=== PATIENT | male | born 1995 | race African-American/Black ===

== ENCOUNTER 2023-07-03 20:26 | Emergency (ER) | payer MEDICAID ==
[~2023-07-03] VITALS: Ht 177.8 cm; Wt 72.0 kg
[2023-07-03 21:36] VITALS: BP 120/73; PULSE 87; RESP 16; TEMP 98.7; O2SAT 100
[2023-07-03] MEDS ORDERED: ONDANSETRON 4MG ODT PO ONE (22:15)
[2023-07-03 22:33] LABS: DIFFERENTIAL COMMENT 1; HEMATOCRIT. 42.4 % (42.0-52.0); HEMOGLOBIN. 14.5 g/dL (14.0-18.0); MEAN CORPUSCULAR HEMOGLOBIN 29.3 pg (28.0-32.0); MEAN CORPUSCULAR HGB CONC 34.2 g/dL (31.0-37.0); MEAN CORPUSCULAR VOLUME 85.6 fL (80.0-94.0); MEAN PLATELET VOLUME 7.6 fl (7.4-10.4); PLATELET 262 x1000/uL (130-400); RED BLOOD CELL COUNT 4.95 mill/uL (4.7-6.1); WHITE BLOOD COUNT 6.6 x1000/uL (4.5-11.0)
[2023-07-03 22:40] LABS: CHLORIDE 109 mEq/L (98-107); INDEX HEMOLYSI 1 (1-3); INDEX ICTERIC 1 (1-4); INDEX LIPEMIC 1 (1-3); POTASSIUM 3.4 mEq/L (3.5-5.1); SODIUM 139 mEq/L (136-145)
[2023-07-03 22:47] LABS: ALANINE AMINOTRANSFERASE 22 IU/L (13-61); ALBUMIN 4.1 g/dL (3.4-5.0); ASPARTATE AMINOTRANSFERASE 27 IU/L (15-37); CARBON DIOXIDE 27 mEq/L (21-32); CREATININE 1.3 mg/dL (0.6-1.3); GLUCOSE 112 mg/dL (70-105); PROTEIN TOTAL 7.9 g/dL (6.0-8.3); UREA NITROGEN BLOOD 16 mg/dL (7-21)
[2023-07-03 22:54] LABS: PLATELET ESTIMATE NORMAL
[2023-07-04] MEDS ORDERED: ONDA4TAB11 PO (00:46)
== END 2023-07-04 00:59 | disposition home or self-care (01) ==
LOC: ER 20:26
DX: K52.9 Noninfective gastroenteritis and colitis, unspecified (principal); J06.9 Acute upper respiratory infection, unspecified; Z20.822 Contact with and (suspected) exposure to COVID-19
CPT/HCPCS: 99283; 87426; 80053; 83690; 85025; 36415; Q0162; C9803

== ENCOUNTER 2024-09-09 20:00 | Emergency (ER) | payer SELFPAY ==
[~2024-09-09] VITALS: Ht 177.8 cm; Wt 68.0 kg
[~2024-09-09 20:00] MED LIST: OMEP20CA14 MT; ONDA-239 PO; SUCR1TAB30 MT
[2024-09-09 20:33] VITALS: TEMP 98.3; O2SAT 100
[2024-09-09] MEDS: ACETAMINOPHEN 325MG TABLET PO STA (23:49)
[2024-09-10] MEDS ORDERED: D-ME473S50 PO (01:20)
[2024-09-10] MEDS ORDERED: ACET-2708 PO (01:20)
[2024-09-10] MEDS ORDERED: ALBU18HF2 IH (01:20)
[2024-09-10 01:28] VITALS: BP 119/68; PULSE 63; RESP 18; O2SAT 98
== END 2024-09-10 01:30 | disposition home or self-care (01) ==
LOC: ER 20:00
DX: J20.9 Acute bronchitis, unspecified (principal); Z79.899 Other long term (current) drug therapy; Z20.822 Contact with and (suspected) exposure to COVID-19
CPT/HCPCS: 71045; 87070; 87426; 87430; 87804; 99284

== ENCOUNTER 2025-03-25 15:27 | Emergency (ER) | payer MEDICAID ==
[~2025-03-25] VITALS: Ht 177.8 cm; Wt 75.0 kg
[~2025-03-25 15:27] MED LIST changes: +ACET-2708 PO; +ALBU18HF2 IH; +D-ME473S50 PO
[2025-03-25 15:38] VITALS: O2SAT 98
[2025-03-25 16:09] VITALS: BP 110/78; PULSE 74; RESP 17; TEMP 36.9; O2SAT 98
[2025-03-25 17:47] LABS: CARBON DIOXIDE 27 mEq/L (21-32); CHLORIDE 102 mEq/L (98-107); POTASSIUM 3.7 mEq/L (3.5-5.1); SODIUM 138 mEq/L (136-145)
[2025-03-25 17:48] LABS: CALCIUM 9.6 mg/dL (8.7-10.4); HEMATOCRIT 39.9 % (42.0-52.0); HEMOGLOBIN 13.3 g/dL (14.0-18.0); MEAN CORPUSCULAR HEMOGLOBIN 28.4 pg (28.0-32.0); MEAN CORPUSCULAR HGB CONC 33.3 g/dL (31.0-37.0); MEAN CORPUSCULAR VOLUME 85.4 fL (80.0-94.0); PLATELET 215 x1000/uL (130-400); RED BLOOD CELL COUNT 4.67 mill/uL (4.7-6.1); RED CELL DISTRIBUTION WIDTH 13.1 % (11.6-14.6); WHITE BLOOD COUNT 7.8 x1000/uL (4.5-11.0)
[2025-03-25 17:52] LABS: CREATININE 1.3 mg/dL (0.6-1.3); GLUCOSE 88 mg/dL (70-105)
[2025-03-25 17:53] LABS: UREA NITROGEN BLOOD 11 mg/dL (9-23)
[2025-03-25 17:54] LABS: ALANINE AMINOTRANSFERASE 12 IU/L (10-49); ALBUMIN 4.2 g/dL (3.2-4.8); ASPARTATE AMINOTRANSFERASE 20 IU/L (<34)
[2025-03-25 17:55] LABS: BILIRUBIN DIRECT 0.2 mg/dL (<=3.0); BILIRUBIN TOTAL 0.6 mg/dL (0.1-1.0); PROTEIN TOTAL 6.6 g/dL (6.0-8.3)
[2025-03-25 18:32] LABS: CLARITY URINE CLEAR (CLEAR); COLOR URINE YELLOW (YELLOW); GLUCOSE URINE NEGATIVE (NEGATIVE); KETONES URINE TRACE (NEGATIVE); LEUKOCYTE ESTERASE URINE NEGATIVE (NEGATIVE); NITRITE URINE NEGATIVE (NEGATIVE); OCCULT BLOOD URINE NEGATIVE (NEGATIVE); PROTEIN URINE NEGATIVE (NEGATIVE); SPECIFIC GRAVITY URINE 1.018 (1.005-1.030); UROBILINOGEN URINE 0.2 E.U./dL (0.2-1.0)
[2025-03-25] MEDS ORDERED: ACET-2708 MT (18:41)
[2025-03-25] MEDS ORDERED: ONDA-239 PO (18:43)
[2025-03-25 18:44] LABS: INFLUENZA TYPE A Presumptive Negative (Pres. Neg.)
[2025-03-25 18:45] LABS: INFLUENZA TYPE B Presumptive Negative (Pres. Neg.)
== END 2025-03-25 19:07 | disposition home or self-care (01) ==
LOC: ER 15:27
DX: U07.1 COVID-19 (principal); Z79.899 Other long term (current) drug therapy
CPT/HCPCS: 36415; 80048; 80076; 81003; 85027; 87426; 87804; 99283